=== PATIENT | male | born 1965 ===

== ENCOUNTER 2017-03-20 13:24 | Emergency (ER) | payer MEDICAID ==
[~2017-03-20] VITALS: Ht 167.6 cm; Wt 93.5 kg
[~2017-03-20 13:24] MED LIST: ADJUST ALUMINUM1 MI1; ALBUAER3 INH; ALPR1TAB3 PO; AMMO12LO TOPICAL; BETA0.1C TOPICAL; CIAL10TA PO; CLOT1CRE TOPICAL; DICY20TA10 PO; FENT50DI T-DERMAL; FLUO40CA PO; FLUT50SP EACH NARE; FURO40TA PO; HYDROMORPHONE PUMP; LIDO3CRE2 TOPICAL; LINA145C PO; METF1000 PO; METH-759 PO; METO2.5T PO; MONT10TA4 PO; MORP1TAB24 PO; MULT-6 PO; MUPI2OIN TOPICAL; NAPR1TAB PO; OLAN2.5T PO; ONDA1TAB16 PO; ONETTES4; PANT40TA3 PO; PRIS50TA PO; SITA1TAB2 PO; SPIR100T PO; SPIRCAP INH; TRAZ150T75 PO; TRIL150T PO; UMEC1AER INH; VITA500T PO; VITATAB11 PO; ZOSTINJ SQ
[2017-03-20 13:27] VITALS: BP 116/67; PULSE 74; RESP 18; TEMP 98.2; O2SAT 95
--- NOTE | 2017-03-20 13:43 | PD ---
Physical Exam Time Seen by Provider: 13:40 Narrative 52yo M c/o syncopal episodes x 2weeks between 5-10 times. Had one earlier today. Cardiac doctor told to come in for evaluation. Denies, SOB, heart palpitations. Patient stable. Patient seen in triage. Awaiting bed placement. Data Data Last Documented VS Vital Signs Date Time Temp Pulse Resp B/P Pulse Ox O2 Delivery O2 Flow Rate FiO2 03/20/17 13:27 98.2 74 18 116/67 95 MDM Supervised Visit with COREY: Deisy Underwood Mar 20, 2017 13:43
[2017-04-11] MEDS ORDERED: LEVE750T8 PO (14:39)
[2017-04-11] MEDS ORDERED: NAPR1TAB PO (14:42)
[2017-04-11] MEDS ORDERED: ONETTES4 (14:42)
[2017-04-11] MEDS ORDERED: MONT10TA4 PO (14:42)
[2017-04-16] MEDS ORDERED: FEXO180T PO (07:11)
[2017-04-27] MEDS ORDERED: FLUT50SP EACH NARE (10:19)
[2017-04-28] MEDS ORDERED: ALPR1TAB3 PO (11:40)
[2017-05-05] MEDS ORDERED: FEXO180T PO (10:42)
[2017-05-05] MEDS ORDERED: [UNRECOGNIZED DRUG - SUPPLY] (10:45)
[2017-05-22] MEDS ORDERED: FENT25DI T-DERMAL (10:20)
[2017-05-22] MEDS ORDERED: BROMSYP PO (11:04)
[2017-05-30] MEDS ORDERED: ALPR0.5T3 PO (07:29)
== END 2017-03-20 16:00 | disposition left against medical advice (07) ==
LOC: NED 13:24
DX: R55 Syncope and collapse (principal)
CPT/HCPCS: 99281